=== PATIENT | male | born 1955 | race Caucasian/White ===

== ENCOUNTER → 2016-10-15 13:59 | Outpatient (CLI) | payer BC | END | disposition home or self-care (01) | LOC: D.CT 13:59 | DX: R09.81 Nasal congestion (principal) ==

== ENCOUNTER 2017-11-22 17:24 | Observation (INO) | payer BC ==
[~2017-11-22] VITALS: Ht 193 cm; Wt 87.0 kg
--- NOTE | ~2017-11-22 | HP ---
PATIENT: ADELFO WOMACK MEDICAL RECORD: [id number] ACCOUNT: [id number] LOCATION:[address] : 55 ADMISSION DATE: 11/22/17 HISTORY AND PHYSICAL EXAMINATION HISTORY OF PRESENT ILLNESS: A 62-year-old gentleman presented to the office today with a 1-day history of weakness, fever. He states that yesterday afternoon, he developed an onset of abdominal discomfort, diarrhea, and throwing up. It happened after he had eaten dinner, he thinks that 2 times today he had a blacking out episode. He has been unable to keep any liquids down or food. He has been running fever and feeling shaky. He in the office was found to be a little tachycardic and hypotensive, normal white count. He did have some hyperactive bowel sounds with KUB showing signs of possible ileus. He is going to be admitted for abdominal pain with dehydration, syncope, and fever. PAST MEDICAL HISTORY: He has got a past medical history that includes hyperlipidemia. MEDICATIONS: His only medicine at home includes atorvastatin 10 mg once daily. ALLERGIES: He has no known drug allergies. SOCIAL HISTORY: He is a former smoker, but quit over 30 years ago. FAMILY HISTORY: Significant for mother with dementia. Father with bladder cancer. He denies any illicit drug use. Occasional beer. He is . REVIEW OF SYSTEMS: CONSTITUTIONAL: He has had some chills and fever. HEENT: He has had headache. He states actually the headaches has been going on for several months. He states that he has had no sore throat. No ear pain. CARDIOPULMONARY: He denies any cough or shortness of breath. He has had some tightness in his chest, which he attributed to some extent to his throwing up. He has had a syncopal episode. GASTROINTESTINAL: He has had some abdominal cramping, diarrhea with emesis. GENITOURINARY: He had decreased urine output, but denies any dysuria or hematuria. NEUROLOGICAL: With syncopal episode as above. PHYSICAL EXAMINATION: VITAL SIGNS: Blood pressure 120/80, pulse 99, and respirations of 16. HEENT: PERRLA, EOMI. Pharynx clear. Some dry oral mucosa noted. NECK: Supple. No JVD. HEART: He had tachycardic rate, regular rhythm. No murmurs or rubs. LUNGS: Clear with no rhonchi, rales or wheezing. ABDOMEN: Soft, nondistended with some hypoactive bowel sounds. EXTREMITIES: He had no clubbing, cyanosis, or edema. NEUROLOGIC: Grossly intact. LABORATORY DATA AND DIAGNOSTIC STUDIES: Normal CBC with a white count of 8.8, hemoglobin 16. His EKG shows sinus rhythm, rate of [address] or T-wave changes. ASSESSMENT AND PLAN: Fever with syncope, abdominal pain, dehydration, possible gastroenteritis. With his fever, we are going to panculture him including flu A HISTORY AND PHYSICAL [id number] ADELFO WOMACK, blood cultures, UA and culture. With his abdominal pain with possible ileus on KUB and fever, we are going to get a CT of his abdomen tonight. For headache, which has been ongoing for some time and questionable syncopal episode, we are going to get a CT of his head. We are going to hydrate him up, antiemetics, and continue to follow him clinically. TRANSINT:[id number] Voice Confirmation ID: [id number] DOCUMENT ID: [id number] DEBBIE DENTON DO at 1016 CC: [id number] DICTATION DATE: 11/22/17 1719 TECHNICAL OPERATIONS SPECIALIST: 11/22/17 1802 ADM IN [place] [id number] [place] [address]
[2017-11-22 18:33] VITALS: BP 118/53; Ht 193 cm; Wt 87.0 kg
[2017-11-22 18:44] LABS: BASOPHILS 0.1 % (0-2); EOSINOPHILS 0 % (0-7); HEMATOCRIT 45.2 % (42.0-54.0); HEMOGLOBIN 16.2 g/dL (13.5-17.5); IMMATURE GRANULOCYTES 0.2 % (0-5); LYMPHOCYTES 3.7 % (15-50); MCH 32.6 pg (26.0-34.0); MCHC 35.8 g/dL (31.0-37.0); MCV 90.9 fL (80.0-100.0); MEAN PLATELET VOLUME 9.5 fL (7.4-10.4); MONOCYTES 6.7 % (2-11); NEUTROPHILS 89.3 % (40-80); PLATELET COUNT 140 10x3/uL (130-400); RBC 4.97 10x6/uL (4.20-6.10); RDW 12.7 % (11.5-14.5); WBC 9.7 10x3/uL (4.8-10.8)
[2017-11-22] MEDS ORDERED: LIPITOR10 MG PO (18:59)
[2017-11-22] MEDS ORDERED: CO Q-10100 MG PO (18:59)
[2017-11-22 19:00] VITALS: BP 127/70
[2017-11-22 19:05] LABS: ANION GAP 12.3 mmol/L (8-16); BILIRUBIN - TOTAL 2.9 mg/dL (0.2-1.3); CALCIUM 8.6 mg/dL (8.5-10.1); CARBON DIOXIDE 24.4 mmol/L (21.0-32.0); CREATININE - SERUM 1.4 mg/dL (0.6-1.3); POTASSIUM - SERUM 3.7 mmol/L (3.5-5.1); PROTEIN - SERUM 7.1 g/dL (6.4-8.2)
[2017-11-22 21:54] LABS: APPEARANCE CLEAR (CLEAR); BILIRUBIN NEGATIVE (NEGATIVE); COLOR DK YELLOW (YELLOW); GLUCOSE NEGATIVE (NEGATIVE); KETONE MODERATE mg/dL (NEGATIVE); NITRITE NEGATIVE (NEGATIVE); PROTEIN TRACE mg/dL (NEGATIVE); SPECIFIC GRAVITY 1.015 (1.005-1.020); UROBILINOGEN NORMAL (NORMAL)
[2017-11-22 21:55] LABS: BACTERIA FEW /hpf (NONE SEEN); MUCUS <1+ /lpf (NONE SEEN); WHITE CELLS - URINE 0-5 /hpf (0-5)
[2017-11-23 04:00] VITALS: BP 138/78
[2017-11-23 05:20] LABS: BASOPHILS 0.2 % (0-2); EOSINOPHILS 0.4 % (0-7); HEMATOCRIT 41.4 % (42.0-54.0); HEMOGLOBIN 14.7 g/dL (13.5-17.5); IMMATURE GRANULOCYTES 0.2 % (0-5); LYMPHOCYTES 11.3 % (15-50); MCH 32.2 pg (26.0-34.0); MCHC 35.5 g/dL (31.0-37.0); MCV 90.6 fL (80.0-100.0); MEAN PLATELET VOLUME 9.4 fL (7.4-10.4); MONOCYTES 6.6 % (2-11); NEUTROPHILS 81.3 % (40-80); PLATELET COUNT 123 10x3/uL (130-400); RBC 4.57 10x6/uL (4.20-6.10); RDW 12.8 % (11.5-14.5)
[2017-11-23 05:53] LABS: ALBUMIN 3.2 g/dL (3.4-5.0); ANION GAP 15.5 mmol/L (8-16); BILIRUBIN - TOTAL 2.2 mg/dL (0.2-1.3); CALCIUM 7.9 mg/dL (8.5-10.1); CREATININE - SERUM 1.1 mg/dL (0.6-1.3); PHOSPHOROUS 2.3 mg/dL (2.5-4.9); POTASSIUM - SERUM 3.5 mmol/L (3.5-5.1); PROTEIN - SERUM 6.1 g/dL (6.4-8.2)
[2017-11-23 09:03] VITALS: BP 112/68
[2017-11-23 11:55] VITALS: BP 122/75
[2017-11-23 16:00] VITALS: BP 174/56
== END 2017-11-23 18:26 | disposition home or self-care (01) ==
LOC: D.M2 17:24 → OBSVTIME 17:24 → D.M2 11-23 18:26
PROVIDERS: Family Medicine
DX: E86.0 Dehydration (principal); R55 Syncope and collapse; R51 Headache; E78.5 Hyperlipidemia, unspecified; Z87.891 Personal history of nicotine dependence; E80.4 Gilbert syndrome